=== PATIENT | female | born 1930 | race Caucasian/White ===

== ENCOUNTER 2016-12-05 17:39 | Emergency (ER) | payer MEDICARE ==
[2016-12-05] MEDS ORDERED: MORPHINE SULFATE 4 MG INJ IV ONE ×2 (17:54→20:07)
[2016-12-05] MEDS ORDERED: Sodium Chloride 0.9% 1000 ML 1,000 ML ONE (17:59)
[2016-12-05] MEDS ORDERED: MORPHINE SULFATE 4 MG INJ ONE ×2 (17:59→20:18)
[2016-12-05] MEDS ORDERED: Sodium Chloride 0.9% 1000 ML 1,000 ML IV SCH (18:00)
--- NOTE | 2016-12-05 18:00 | ERPHSYRPT ---
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 Physician History: 86-year-old white female arrives with complaint of pain in the base of her neck and also in the upper thoracic region after falling at home. According to the patient she fell at home striking her neck, possibly on stairs. She states that she really doesn't know why she fell she thinks that she might loss of balance she denies any loss of consciousness. She has no chest pain no nausea or shortness of breath. She does have pain across her upper thoracic region radiating across her shoulders and pain in the base of her neck. Past medical history patient denies. Past surgical history patient states that she has had a hysterectomy she's not sure she had a gallbladder or appendix taken out. Timing/Duration: today (fell just prior to arrival) Severity: moderate Modifying Factors: Worsens With: eating, immobilization, medication, movement, rest, acetaminophen, ibuprofen Associated Symptoms: No nausea, No vomiting, No abdominal pain, No shortness of breath, No heartburn, No diaphoresis, No cough, No chills, No chest pain, No fever, No headaches, No loss of appetite, No malaise, No rash, No syncope, No seizure, No weakness Allergies/Adverse Reactions: No Known Drug Allergies Allergy (Verified 12/05/16 17:45) Home Medications: Aspirin 81 gm Chew [Baby Aspirin 81 mg Chew] 81 mg PO DAILY 12/05/16 [ History] Hx Tetanus, Diphtheria Vaccination/Date Given: Yes Immunizations Up to Date: Yes - Review of Systems Constitutional: No Fever, No Chills Eyes: No Symptoms Ears, Nose, & Throat: No Symptoms Respiratory: No Cough, No Dyspnea Cardiac: No Chest Pain, No Edema, No Syncope Abdominal/Gastrointestinal: No No Symptoms, No Abdominal Pain, No Nausea, No Vomiting, No Diarrhea, No Constipation, No Hematemesis, No Hematochezia, No Melena, No Dysphagia, No Appetite Changes Genitourinary Symptoms: No Dysuria Musculoskeletal: Other (pain posterior neck and upper thoracic region) Skin: No Rash Neurological: No Dizziness, No Focal Weakness, No Sensory Changes Psychological: No Symptoms Endocrine: No Symptoms All Other Systems: Reviewed and Negative - Past Medical History Pertinent Past Medical History: No - Past Surgical History Past Surgical History: Yes Female Surgical History: Hysterectomy - Social History Smoking Status: Never smoker Drug Use: none - Nursing Vital Signs Nursing Vital Signs: Initial Vital Signs Temperature 97.7 F 12/05/16 17:39 Pulse Rate 95 H 12/05/16 17:39 Respiratory Rate 18 12/05/16 17:39 Blood Pressure 180/90 12/05/16 17:39 O2 Sat by Pulse Oximetry 99 12/05/16 17:39 Pain Scale Pain Intensity 10 - Physical Exam General Appearance: mild distress, other (well-developed well-nourished white female C collar in place) Eye Exam: PERRL/EOMI, eyes nml inspection Ears, Nose, Throat Exam: normal ENT inspection, TMs normal, pharynx normal, moist mucous membranes Neck Exam: other (neck tender at the base posteriorly c-collar in place), No non -tender Respiratory Exam: normal breath sounds, lungs clear, No respiratory distress Cardiovascular Exam: regular rate/rhythm, normal heart sounds, normal peripheral pulses Gastrointestinal/Abdomen Exam: soft, normal bowel sounds, No tenderness, No mass 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), No normal inspection, No normal range of motion, No CVA tenderness, No vertebral tenderness Extremity Exam: normal inspection, normal range of motion, pelvis stable Neurologic Exam: alert, oriented x 3, cooperative, normal mood/affect, nml cerebellar function, nml station & gait, sensation nml, No motor deficits Skin Exam: normal color, warm, dry, No rash Lymphatic Exam: No adenopathy SpO2 Interpretation: normal (99%) SpO2: 99 Oxygen Delivery: Room Air - Course Nursing assessment & vital signs reviewed: Yes EKG Interpreted by Me: RATE (87 bpm), Sinus Rhythm, NORMAL AXIS, Other (EKG: Normal sinus rhythm, 87 bpm, normal axis, no acute ST or T wave changes noted) - Radiology Exams Chest X-ray Interpretation: Interpreted by me, Negative, No Pneumonia, No Pneumothorax , Other (chest x-ray: No acute disease process noted) - CT Exams Cervical Spine CT Interpretation: Discussed w/radiologist (CT C-spine: no comparisons, C7 superior endplate fracture with a 50% height loss and no spinal canal stenosis. 2 mm anterior lysthesis C5 on C6 osteopenia and degenerative disc disease) Thoracic Spine CT Interpretation: Discussed w/radiologist (CT thoracic spine: No comparisons, osteopenia and multilevel degenerative changes negative fracture.) Head CT Interpretation: Discussed w/radiologist (CT head: No comparisons. Small right parietal scalp hematoma no fracture or acute intracranial findings) Ordered Tests: Active Orders 24 hr Category Date Time Status Accucheck STAT Care 12/05/16 17:53 Active EKG-ER Only STAT Care 12/05/16 17:53 Active IV Insertion STAT Care 12/05/16 17:53 Active CERVICAL SPINE WO CONTRAST [CT] Stat Exams 12/05/16 17:53 Taken CHEST 1 VIEW (PORTABLE) Stat Exams 12/05/16 17:55 Taken HEAD WITHOUT CONTRAST [CT] Stat Exams 12/05/16 19:38 Taken THORACIC SPINE W/O CONTRAST [CT] Stat Exams 12/05/16 17:55 Taken CBC W DIFF Stat Lab 12/05/16 18:08 Completed CMP Stat Lab 12/05/16 18:08 Completed Manual Differential NC Stat Lab 12/05/16 18:08 Completed Medication Summary Generic Name Dose Route Start Last Admin Trade Name Freq PRN Reason Stop Dose Admin Sodium Chloride 1,000 mls @ 100 mls/hr 12/05/16 18:00 12/05/16 18:02 Sodium Chloride 0.9% 1000 Ml IV 01/04/17 17:59 100 mls/hr .Q10H JANAY Administration Discontinued Medications Generic Name Dose Route Start Last Admin Trade Name Freq PRN Reason Stop Dose Admin Morphine Sulfate 4 mg 12/05/16 17:54 12/05/16 18:01 Morphine Sulfate 4 Mg Inj IV 12/05/16 17:55 4 mg STAT ONE Administration Morphine Sulfate Confirm 12/05/16 17:59 Morphine Sulfate 4 Mg Inj Administered 12/05/16 18:00 Dose 4 mg .ROUTE .STK-MED ONE Morphine Sulfate 4 mg 12/05/16 20:07 Morphine Sulfate 4 Mg Inj IV 12/05/16 20:08 STAT ONE Morphine Sulfate Confirm 12/05/16 20:18 Morphine Sulfate 4 Mg Inj Administered 12/05/16 20:19 Dose 4 mg .ROUTE .STK-MED ONE Lab/Rad Data: Laboratory Result Diagrams 12/05/16 18:08 12/05/16 18:08 Laboratory Results 12/05/16 12/05/16 Range/Units 18:08 18:08 WBC 10.4 (4.0-10.5) K/mm3 RBC 3.91 L (4.1-5.4) M/mm3 Hgb 11.7 L (12.0-16.0) gm/dl Hct 36.5 (35-47) % MCV 93.4 (78-100) fl MCH 29.9 (26-32) pg MCHC 32.1 (32-36) g/dl RDW 12.6 (11.5-14.0) % Plt Count 315 (150-450) K/mm3 MPV 10.2 H (6-9.5) fl Segmented Neutrophils 32 L (36.0-66.0) % Band Neutrophils 3 H (0.0-2.0) % Lymphocytes (Manual) 55 H (24-44) % Monocytes (Manual) 2 (0.0-12.0) % Differential Comment NORMAL Atypical Lymphocytes 8 % Platelet Estimate NORMAL (NORMAL) Sodium 142 (136-145) mEq/L Potassium 3.7 (3.5-5.1) mEq/L Chloride 105 (98-107) mEq/L Carbon Dioxide 24.4 (21-32) mEq/L Anion Gap 16.7 H (5-15) MEQ/L BUN 25 H (9-20) mg/dL Creatinine 1.30 (0.55-1.30) mg/dl Estimated GFR 41 ML/MIN Glucose 121 H (70-110) MG/DL Calcium 10.4 H (8.5-10.1) mg/dL Total Bilirubin 0.70 (0.2-1.0) mg/dL AST 27 (15-37) U/L ALT 14 (12-78) U/L Alkaline Phosphatase 99 (46-116) U/L Serum Total Protein 7.9 (6.4-8.2) gm/dL Albumin 4.2 (3.4-5.0) g/dL - Progress Progress: improved Progress Note: 12/05/16 19:22 Patient with a C7 superior endplate fracture with a 50% height loss and no spinal canal stenosis 2 mm anterolisthesis C5 on C6. Osteopenia and degenerative disc disease CT T-spine no comparisons osteopenia and multilevel degenerative changes. Negative fracture. Patient has been running a blood pressure of 200/100 she states she has no meds she has no chest pain Pain is limited to patient's neck 12/05/16 19:39 I discussed the patient's case with Dr. Zhang at [facility],, He has received requested that a CT of the head be obtained on this patient. And he has accepted the patient to [facility] after this is done. Will obtain CT of the head plan on transfer patient has been given morphine for pain. Patient's EKG CBC CMP are essentially normal 12/05/16 19:44 Patient's blood pressure has run 200/100 she has been stable there is felt that this is a likely secondary to her pain she is being given morphine for pain, She has no neurologic sequela associated with her high blood pressure, - Departure Time of Disposition: 20:22 Departure Disposition: Transfer ([facility] [address] Mendoza) Clinical Impression: Accidental fall Qualifiers: Encounter type: initial encounter Qualified Code(s): W19.XXXA - Unspecified fall, initial encounter Cervical compression fracture Qualifiers: Encounter type: initial encounter Qualified Code(s): S12.9XXA - Fracture of neck, unspecified, initial encounter Hypertension Qualifiers: Hypertension type: unspecified Qualified Code(s): I10 - Essential (primary) hypertension Condition: Fair Critical Care Time: No Referrals: JOSE ZENG MD [Primary Care Provider] -
[2016-12-05 18:11] LABS: Mean Cell Volume 93.4 fl (78-100); Mean Corpuscular Hemoglobin 29.9 pg (26-32); Mean Platelet Volume 10.2 fl (6-9.5); Platelet Count 315 K/mm3 (150-450); Red Blood Count 3.91 M/mm3 (4.1-5.4); Red Cell Distribution Width 12.6 % (11.5-14.0); White Blood Count 10.4 K/mm3 (4.0-10.5)
[2016-12-05 18:37] LABS: ALBUMIN 4.2 g/dL (3.4-5.0); ANION GAP 16.7 MEQ/L (5-15); BILIRUBIN,TOTAL 0.7 mg/dL (0.2-1.0); Carbon Dioxide 24.4 mEq/L (21-32); Potassium 3.7 mEq/L (3.5-5.1); Total Protein 7.9 gm/dL (6.4-8.2)
[2016-12-05 18:45] LABS: ATYPICAL LYMPHS 8 %; BAND 3 % (0.0-2.0); Platelet Estimate NORMAL (NORMAL); Total Cells Counted 100
[2016-12-05 21:13] VITALS: BP 185/81; PULSE 80; O2SAT 97
--- NOTE | 2016-12-06 08:34 | XRAY ---
Indication: Pain following fall. Multiple contiguous axial images obtained through the head without contrast. Comparison: None Ventriculosulcal pattern appears symmetric with age-related global atrophy and minimal periventricular degenerative micro-ischemia. No acute intracranial hemorrhage, abnormal extra-axial fluid collection, or mass effect. Fourth ventricle is midline without hydrocephalus. Bony calvarium intact. Small high right parietal scalp hematoma. Visualized paranasal sinuses and mastoid air cells are clear. Impression: Nonacute senile brain with small right parietal scalp hematoma. CT DI 46.29
--- NOTE | 2016-12-06 08:39 | XRAY ---
Indication: Pain following fall. Multiple contiguous axial images obtained through the cervical spine. Sagittal and coronal reformatted images obtained. Comparison: None Osseous structures demineralized. There is fracture involving the superior endplate of C7 with approximately 50% height loss. No spinal canal or foraminal stenosis. Elsewhere mild C5-C6 degenerative endplate spurring, multilevel bilateral degenerative facet arthropathy, and odontoid process subcortical cyst. Sagittal and coronal reformatted images demonstrates 2 mm C5 anterolisthesis on C6. No other subluxation or jumped facet. Normal-appearing craniocervical junction. Visualized noncontrasted soft tissues demonstrates biapical pleural thickening. CT head and CT thoracic spine reported separately. Impression: 1. C7 superior endplate fracture as detailed. 2. Osteopenia, multilevel degenerative changes, and minimal grade [address] DI 77.43
--- NOTE | 2016-12-06 08:43 | XRAY ---
Indication: Pain following fall. Multiple contiguous axial images obtained through the thoracic spine. Sagittal and coronal reformatted images obtained. Comparison: None Osseous structures demineralized. No acute fracture, suspicious bony lesions, or spinal canal stenosis. Mild multilevel degenerative endplate spurring. Sagittal and coronal reformatted images demonstrates normal alignment. No acute compression fracture or subluxation. Visualized noncontrasted soft tissues demonstrates tiny right lung calcified granuloma and mild aortic calcifications. CT cervical spine reported separately. Impression: 1. Negative acute fracture. 2. Osteopenia. CT DI 71.54
--- NOTE | 2016-12-06 09:01 | XRAY ---
Indication: Fall. Comparison: None Portable chest hyperinflated and clear with incidental left base calcified granuloma. Heart is within normal limits for AP portable technique. Vascularity normal. Bony thorax intact with mild osteopenia, degenerative changes, and old left clavicle fracture. Impression: No acute chest with chronic features.
== END 2016-12-05 21:10 | disposition short-term general hospital (02) ==
LOC: ED 17:39
DX: S12.9XXA Fracture of neck, unspecified, initial encounter (principal); I10 Essential (primary) hypertension; W18.39XA Other fall on same level, initial encounter; Y92.018 Other place in single-family (private) house as the place of occurrence of the external cause; M54.6 Pain in thoracic spine; M54.2 Cervicalgia
CPT/HCPCS: 36000; 36415; 70450; 71010; 72125; 72128; 80053; 82962; 85025; 93005; 96360; 96361; 96374; 96375; 99285; J2270

== ENCOUNTER 2019-07-13 13:56 | Inpatient (IN) | payer MEDICARE ==
--- NOTE | 2019-07-13 14:00 | ERPHSYRPT ---
- History of Present Illness Time Seen by Provider: 07/13/19 13:59 Source: patient Exam Limitations: no limitations Physician History: Is an 88-year-old white female patient of Dr. Zeng who has a history of elevated cholesterol. Patient is not taking her cholesterol-lowering medication. She only takes a baby aspirin a day. For the last 2 to 3 days the patient has been experiencing increasing shortness of breath. She denies pain of any kind. Patient was seen in the outpatient clinic where her oxygen saturations room air was 92%. Patient denies nausea vomiting and diarrhea. Patient denies chest pain. Patient denies fever. Patient denies cough. Patient has not been exposed to anybody with any flulike illnesses or diagnoses. Timing/Duration: day(s) (A few), worse Activities at Onset: none Severity of Dyspnea-Max: moderate Severity of Dyspnea-Current: mild Possible Cause: no prior episodes Modifying Factors: Improves With: exertion Associated Symptoms: No cough, No chest pain/discomfort, No fever, No wheezing, No hemoptysis, No painful breathing, No productive cough Allergies/Adverse Reactions: No Known Drug Allergies Allergy (Verified 12/05/16 17:45) Home Medications: Aspirin 81 gm Chew [Baby Aspirin 81 mg Chew] 81 mg PO DAILY 12/05/16 [ History] Hx Tetanus, Diphtheria Vaccination/Date Given: Yes Travel Risk - International Travel Have you traveled outside of the country in past 3 weeks: No Have you or anyone close to you been diagnosed with or: No Do your reside in a community with a known COVID-19 case?: Yes If Yes where:: [facility] - Coronavirus Screening Has patient experienced Coronavirus symptoms: Yes Symptoms experienced: respiratory symptoms (i.e.Cought,shortness of breath) - Review of Systems Constitutional: No Symptoms Eyes: No Symptoms Ears, Nose, & Throat: No Symptoms Respiratory: Dyspnea Cardiac: No Symptoms, Palpitations, No Chest Pain Abdominal/Gastrointestinal: No Symptoms Genitourinary Symptoms: No Symptoms Musculoskeletal: No Symptoms Skin: No Symptoms Neurological: No Symptoms Psychological: No Symptoms Endocrine: No Symptoms Hematologic/Lymphatic: No Symptoms Immunological/Allergic: No Symptoms All Other Systems: Reviewed and Negative - Past Medical History Pertinent Past Medical History: No Neurological History: No Pertinent History ENT History: No Pertinent History Cardiac History: No Pertinent History Respiratory History: No Pertinent History Endocrine Medical History: No Pertinent History Musculoskeletal History: No Pertinent History GI Medical History: No Pertinent History History: No Pertinent History Psycho-Social History: No Pertinent History Female Reproductive Disorders: No Pertinent History - Past Surgical History Past Surgical History: Yes Neuro Surgical History: No Pertinent History Cardiac: No Pertinent History Respiratory: No Pertinent History Gastrointestinal: No Pertinent History Genitourinary: No Pertinent History Musculoskeletal: No Pertinent History Female Surgical History: Hysterectomy - Social History Smoking Status: Never smoker Drug Use: none - Nursing Vital Signs Nursing Vital Signs: Initial Vital Signs Temperature 97.7 F 07/13/19 13:57 Pulse Rate 132 H 07/13/19 13:57 Respiratory Rate 28 H 07/13/19 13:57 Blood Pressure 181/127 07/13/19 13:57 O2 Sat by Pulse Oximetry 97 07/13/19 13:57 Pain Scale Pain Intensity 0 - Physical Exam General Appearance: no apparent distress, alert Eye Exam: PERRL/EOMI, eyes nml inspection Ears, Nose, Throat Exam: hearing grossly normal, normal ENT inspection, normal pharynx Neck Exam: normal inspection, non-tender, supple, full range of motion Respiratory Exam: normal breath sounds, lungs clear, airway intact, No chest tenderness, No respiratory distress Cardiovascular/Chest Exam: irregular Abdominal/Gastrointestinal Exam: soft, normal bowel sounds, No tenderness Rectal Exam: not done Extremity Exam: non-tender, normal range of motion, normal inspection Neurologic Exam: alert, oriented x 3, cooperative, 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 tested, normal mood/affect, nml cerebellar function, nml station & gait Skin Exam: normal color, warm, dry Lymphatic Exam: No adenopathy SpO2 Interpretation: normal O2 Delivery: Room Air - Course Nursing assessment & vital signs reviewed: Yes EKG Interpreted by Me: RATE (160), A-fib Ordered Tests: Active Orders 24 hr Category Date Time Status Obstetrics Nurse STAT Care 07/13/19 14:21 Active EKG-ER Only STAT Care 07/13/19 14:20 Active IV Insertion STAT Care 07/13/19 14:20 Active Pulse Oximetry (ED) STAT Care 07/13/19 14:20 Active CHEST 1 VIEW (PORTABLE) Stat Exams 07/13/19 14:22 Completed CHEST WITH CONTRAST [CT] Stat Exams 07/13/19 17:11 Taken BMP Stat Lab 07/13/19 16:40 Completed CBC W DIFF Stat Lab 07/13/19 14:45 Completed CMP Stat Lab 07/13/19 14:20 Completed D-DIMER QUANTITATIVE Stat Lab 07/13/19 14:20 Completed Ferritin Stat Lab 07/13/19 15:00 Completed Lactic Acid Stat Lab 07/13/19 14:20 Completed Lactic Acid Stat Lab 07/13/19 16:35 Completed MAGNESIUM Stat Lab 07/13/19 14:20 Completed NT PRO BNP Stat Lab 07/13/19 14:20 Completed PROTIME WITH INR Stat Lab 07/13/19 14:20 Completed TROPONIN Q3H Lab 07/13/19 14:30 Completed TROPONIN Q3H Lab 07/13/19 16:40 Completed TROPONIN Q3H Lab 07/13/19 20:30 Ordered TROPONIN Q3H Lab 07/13/19 23:30 Ordered TROPONIN Q3H Lab 07/14/19 02:30 Ordered Medication Summary Generic Name Dose Route Start Last Admin Trade Name Freq PRN Reason Stop Dose Admin Diltiazem HCl 100 mls @ 5 mls/hr 07/13/19 15:09 07/13/19 15:18 Cardizem Drip 100 Mg/100 Ml D5w IV 08/12/19 15:08 5 mg/hr .Q20H PRN 5 mls/hr HEART RATE/ A-FIB Administration Protocol 5 MG/HR Discontinued Medications Generic Name Dose Route Start Last Admin Trade Name Freq PRN Reason Stop Dose Admin Diltiazem HCl 15 mg 07/13/19 14:18 07/13/19 14:29 Diltiazem Hcl 25 Mg/5 Ml Vial IV 07/13/19 14:19 Not Given STAT ONE Diltiazem HCl Confirm 07/13/19 14:21 Cardizem Iv 50 Mg/10 Ml Administered 07/13/19 14:22 Dose 50 mg IV .STK-MED ONE Diltiazem HCl 15 mg 07/13/19 14:20 07/13/19 14:23 Cardizem Iv 50 Mg/10 Ml IV 07/13/19 14:21 15 mg STAT ONE Administration Sodium Chloride 500 mls @ 500 mls/hr 07/13/19 15:09 07/13/19 17:19 Sodium Chloride 0.9% 500 Ml IV 07/13/19 16:08 Infused .Q1H ONE Infusion Sodium Chloride Confirm 07/13/19 15:11 Sodium Chloride 0.9% 500 Ml Administered 07/13/19 15:12 Dose 500 mls @ ud IV .STK-MED ONE Lab/Rad Data: Laboratory Result Diagrams 07/13/19 14:45 07/13/19 16:40 Laboratory Results 07/13/19 07/13/19 07/13/19 Range/Units 16:40 16:40 16:35 WBC (4.0-10.5) K/mm3 RBC (4.1-5.4) M/mm3 Hgb (12.0-16.0) gm/dl Hct (35-47) % MCV (78-100) fl MCH (26-32) pg MCHC (32-36) g/dl RDW (11.5-14.0) % Plt Count (150-450) K/mm3 MPV (7.5-11.0) fl Gran % (36.0-66.0) % Eos # (Auto) (0-0.5) Absolute Lymphs (auto) (1.0-4.6) Absolute Monos (auto) (0.0-1.3) Lymphocytes % (24.0-44.0) % Monocytes % (0.0-12.0) % Eosinophils % (0.00-5.0) % Basophils % (0.0-0.4) % Absolute Granulocytes (1.4-6.9) Basophils # (0-0.4) PT (9.95-12.35) SECONDS INR (0.8-3.0) D-Dimer (215-500) ng/mL Sodium 144 (137-145) mmol/L Potassium 4.4 (3.5-5.1) mmol/L Chloride 113 H (98-107) mmol/L Carbon Dioxide 22 (22-30) mmol/L Anion Gap 13.1 (5-15) MEQ/L BUN 27 H (7-17) mg/dL Creatinine 1.08 H (0.52-1.04) mg/dL Estimated GFR 51.0 ML/MIN Glucose 109 H (74-106) mg/dL Lactic Acid 1.3 (0.4-2.0) Calcium 10.1 (8.4-10.2) mg/dL Magnesium (1.6-2.3) mg/dL Ferritin (11.1-264) ng/mL Total Bilirubin (0.2-1.3) mg/dL AST (14-36) U/L ALT (0-35) U/L Alkaline Phosphatase (38-126) U/L Troponin I < 0.012 (0.000-0.034) ng/mL NT-Pro-B Natriuret Pep (0-1800) pg/mL Serum Total Protein (6.3-8.2) g/dL Albumin (3.5-5.0) g/dL 07/13/19 07/13/19 07/13/19 Range/Units 15:00 14:45 14:30 WBC 8.2 (4.0-10.5) K/mm3 RBC 3.67 L (4.1-5.4) M/mm3 Hgb 11.1 L (12.0-16.0) gm/dl Hct 34.7 L (35-47) % MCV 94.6 (78-100) fl MCH 30.2 (26-32) pg MCHC 32.0 (32-36) g/dl RDW 13.2 (11.5-14.0) % Plt Count 266 (150-450) K/mm3 MPV 9.8 (7.5-11.0) fl Gran % 83.6 H (36.0-66.0) % Eos # (Auto) 0.02 (0-0.5) Absolute Lymphs (auto) 0.81 L (1.0-4.6) Absolute Monos (auto) 0.51 (0.0-1.3) Lymphocytes % 9.8 L (24.0-44.0) % Monocytes % 6.2 (0.0-12.0) % Eosinophils % 0.2 (0.00-5.0) % Basophils % 0.2 (0.0-0.4) % Absolute Granulocytes 6.87 (1.4-6.9) Basophils # 0.02 (0-0.4) PT (9.95-12.35) SECONDS INR (0.8-3.0) D-Dimer (215-500) ng/mL Sodium (137-145) mmol/L Potassium (3.5-5.1) mmol/L Chloride (98-107) mmol/L Carbon Dioxide (22-30) mmol/L Anion Gap (5-15) MEQ/L BUN (7-17) mg/dL Creatinine (0.52-1.04) mg/dL Estimated GFR ML/MIN Glucose (74-106) mg/dL Lactic Acid (0.4-2.0) Calcium (8.4-10.2) mg/dL Magnesium (1.6-2.3) mg/dL Ferritin 28.1 (11.1-264) ng/mL Total Bilirubin (0.2-1.3) mg/dL AST (14-36) U/L ALT (0-35) U/L Alkaline Phosphatase (38-126) U/L Troponin I < 0.012 (0.000-0.034) ng/mL NT-Pro-B Natriuret Pep (0-1800) pg/mL Serum Total Protein (6.3-8.2) g/dL Albumin (3.5-5.0) g/dL 07/13/19 07/13/19 07/13/19 Range/Units 14:20 14:20 14:20 WBC (4.0-10.5) K/mm3 RBC (4.1-5.4) M/mm3 Hgb (12.0-16.0) gm/dl Hct (35-47) % MCV (78-100) fl MCH (26-32) pg MCHC (32-36) g/dl RDW (11.5-14.0) % Plt Count (150-450) K/mm3 MPV (7.5-11.0) fl Gran % (36.0-66.0) % Eos # (Auto) (0-0.5) Absolute Lymphs (auto) (1.0-4.6) Absolute Monos (auto) (0.0-1.3) Lymphocytes % (24.0-44.0) % Monocytes % (0.0-12.0) % Eosinophils % (0.00-5.0) % Basophils % (0.0-0.4) % Absolute Granulocytes (1.4-6.9) Basophils # (0-0.4) PT 12.3 (9.95-12.35) SECONDS INR 1.09 (0.8-3.0) D-Dimer 3733 H* (215-500) ng/mL Sodium 146 H (137-145) mmol/L Potassium 4.2 (3.5-5.1) mmol/L Chloride 112 H (98-107) mmol/L Carbon Dioxide 23 (22-30) mmol/L Anion Gap 16.4 H (5-15) MEQ/L BUN 28 H (7-17) mg/dL Creatinine 1.19 H (0.52-1.04) mg/dL Estimated GFR 45.6 ML/MIN Glucose 146 H (74-106) mg/dL Lactic Acid 2.2 H (0.4-2.0) Calcium 10.7 H (8.4-10.2) mg/dL Magnesium 2.3 (1.6-2.3) mg/dL Ferritin (11.1-264) ng/mL Total Bilirubin 0.80 (0.2-1.3) mg/dL AST 26 (14-36) U/L ALT 23 (0-35) U/L Alkaline Phosphatase 114 (38-126) U/L Troponin I (0.000-0.034) ng/mL NT-Pro-B Natriuret Pep 4720 H (0-1800) pg/mL Serum Total Protein 7.7 (6.3-8.2) g/dL Albumin 4.3 (3.5-5.0) g/dL - Progress Progress: improved, re-examined Air Movement: good Progress Note: 07/13/19 18:43 Clinically, the patient states she is feeling better with oxygen placed nasal cannulae. CAT scan of the chest with contrast shows small filling defects within the right upper and lower segmental pulmonary arteries compatible with pulmonary emboli. There is moderate right and small left pleural effusions with adjacent consolidation of lower lobes. Scattered bilateral peripheral groundglass and nodular opacities with interlobar septal thickening are also present. There are multiple enlarged mediastinal lymph nodes sent Medical decision making: This patient has several medical issues occurring simultaneously. Patient has atrial fibrillation with RVR, congestive heart failure, bilateral pulmonary emboli and bilateral pleural effusions with associated pulmonary edema. I spoke with Dr. Jones who is managing the COVID- 19 unit here in the hospital. I reviewed the patient history, condition, x-ray findings, EKG, laboratory results. I also spoke with the patient regarding her DNR status. Patient is adamantly opposed to undergoing endotracheal intubation or coding process. Patient is a full DNR. Blood Culture(s) Obtained: No Antibiotics given: No - Departure Departure Disposition: In-patient Admission Clinical Impression: Pulmonary edema, Pleural effusion, Congestive heart failure, Pulmonary emboli, Atrial fibrillation with RVR Condition: Fair Critical Care Time: Yes Critical Care Time(excluding separately billable procedures): Critical 75-104 mins Referrals: JOSE ZENG MD [Primary Care Provider] - Instructions: Heart Failure
[2019-07-13] MEDS ORDERED: Cardizem IV 50 MG/10 ML IV ONE ×2 (14:20→14:21)
[2019-07-13] MEDS: DILTIAZEM HCL 25 MG/5 ML VIAL IV ONE ×2 (14:22→14:29)
--- NOTE | 2019-07-13 14:45 | XRAY ---
Indication: Short of breath. Comparison: December 05, 2016. Portable chest demonstrates new cardiomegaly, interstitial edema, and mild/moderate bibasilar effusions right greater than left favoring cardiac decompensation/CHF. Bony thorax intact again with osteopenia, degenerative changes, and old left clavicle fracture.
[2019-07-13 14:51] LABS: Absolute Neutrophil Ct (ANC) 6.87 (1.4-6.9); BASOPHIL % 0.2 % (0.0-0.4); Basophil (Absolute #) 0.02 (0-0.4); Eosinophil % 0.2 % (0.00-5.0); Eosinophil (Absolute #) 0.02 (0-0.5); Hematocrit 34.7 % (35-47); Hemoglobin 11.1 gm/dl (12.0-16.0); Lymphocyte (Absolute #) 0.81 (1.0-4.6); Lymphocytes % 9.8 % (24.0-44.0); Mean Cell Volume 94.6 fl (78-100); Mean Corpuscular Hemoglobin 30.2 pg (26-32); Mean Platelet Volume 9.8 fl (7.5-11.0); Monocyte (Absolute #) 0.51 (0.0-1.3); Monocytes % 6.2 % (0.0-12.0); Neutrophil % 83.6 % (36.0-66.0); Platelet Count 266 K/mm3 (150-450); Red Blood Count 3.67 M/mm3 (4.1-5.4); Red Cell Distribution Width 13.2 % (11.5-14.0); White Blood Count 8.2 K/mm3 (4.0-10.5)
[2019-07-13 14:51] LABS: INR 1.09 (0.8-3.0); PROTIME 12.3 SECONDS (9.95-12.35)
[2019-07-13 15:00] LABS: ALBUMIN 4.3 g/dL (3.5-5.0); ANION GAP 16.4 MEQ/L (5-15); BILIRUBIN,TOTAL 0.8 mg/dL (0.2-1.3); Calcium 10.7 mg/dL (8.4-10.2); Creatinine 1 1.19 mg/dL (0.52-1.04); MAGNESIUM 2.3 mg/dL (1.6-2.3); Potassium 4.2 mmol/L (3.5-5.1); Total Protein 7.7 g/dL (6.3-8.2)
[2019-07-13] MEDS ORDERED: Sodium Chloride 0.9% 500 ML 500 ML IV ONE ×2 (15:09→15:11)
[2019-07-13] MEDS: CARDIZEM DRIP 100 MG/100 ML D5W 100 ML IV PRN (15:18)
[2019-07-13 17:06] LABS: ANION GAP 13.1 MEQ/L (5-15); Calcium 10.1 mg/dL (8.4-10.2); Creatinine 1 1.08 mg/dL (0.52-1.04); Potassium 4.4 mmol/L (3.5-5.1)
[2019-07-13] MEDS ORDERED: ENOXAPARIN SODIUM SQ ONE ×2 (18:53→19:18)
[2019-07-13] MEDS ORDERED: Lasix 40 MG/4 ML IV ONE (18:54)
[2019-07-13] MEDS ORDERED: Lasix 40 MG/4 ML ONE (19:18)
[2019-07-13] MEDS ORDERED: CARDIZEM DRIP 100 MG/100 ML D5W 100 ML IV PRN (20:16)
[2019-07-13] MEDS ORDERED: Lasix 40 MG/4 ML IV SCH (20:16)
[2019-07-13] MEDS ORDERED: Zofran 4 MG/2 ML VIAL IV PRN (20:16)
--- NOTE | 2019-07-13 22:27 | XRAY ---
Indication: Short of breath. Elevated d-dimer. Multiple contiguous axial images obtained through the chest using 80 cc of Isovue 370 contrast and PE protocol. Comparison: None There is satisfactory opacification of the pulmonary arteries. Mild respiration artifact limits evaluation of the more distal lobar and segmental branches. Multiple nonoccluding pulmonary emboli seen in the right upper, right middle, and right lower lobes. Tiny saddle embolus seen in the left upper lobe. Heart is enlarged. Aorta is mildly arteriosclerotic without aneurysm/dissection. Small mediastinal calcified nodes. No pathologic mediastinal/hilar lymphadenopathy. Lungs demonstrates interstitial edema and moderate bilateral pleural effusions right greater than left with bibasilar compressive atelectasis. Bony thorax intact with osteopenia and minimal degenerative changes throughout the spine. Limited upper abdomen demonstrates mild fatty liver and hepatic/splenic calcified granulomas. Impression: 1. Mild respiration artifact. 2. Nonoccluding pulmonary emboli in the right upper/middle/lower lobes and tiny saddle embolus left upper lobe. 3. Cardiomegaly, interstitial edema, and bilateral pleural effusions favoring cardiac decompensation/CHF. 4. Mild fatty liver and evidence for old granulomatous disease. Comment: Preliminary interpretation was made by C. No critical discrepancy.
[2019-07-14] MEDS: ENOXAPARIN SODIUM SQ SCH ×3 (03:11→21:28)
[2019-07-14 04:00] LABS: Absolute Neutrophil Ct (ANC) 5.65 (1.4-6.9); BASOPHIL % 0.4 % (0.0-0.4); Basophil (Absolute #) 0.03 (0-0.4); Eosinophil % 0.3 % (0.00-5.0); Eosinophil (Absolute #) 0.02 (0-0.5); Hematocrit 34.3 % (35-47); Lymphocyte (Absolute #) 1.03 (1.0-4.6); Mean Cell Volume 94.5 fl (78-100); Mean Corpuscular Hemoglobin 30.3 pg (26-32); Mean Corpuscular Hgb Concent. 32.1 g/dl (32-36); Mean Platelet Volume 10.1 fl (7.5-11.0); Monocyte (Absolute #) 0.62 (0.0-1.3); Monocytes % 8.4 % (0.0-12.0); Neutrophil % 76.9 % (36.0-66.0); Platelet Count 282 K/mm3 (150-450); Red Blood Count 3.63 M/mm3 (4.1-5.4); Red Cell Distribution Width 13.3 % (11.5-14.0); White Blood Count 7.4 K/mm3 (4.0-10.5)
[2019-07-14] MEDS ORDERED: CARDIZEM DRIP 100 MG/100 ML D5W 100 ML IV ONE (04:01)
[2019-07-14 04:05] LABS: ALBUMIN 4.1 g/dL (3.5-5.0); ANION GAP 14.8 MEQ/L (5-15); BILIRUBIN,TOTAL 0.9 mg/dL (0.2-1.3); Calcium 10.5 mg/dL (8.4-10.2); Creatinine 1 1.15 mg/dL (0.52-1.04); Potassium 3.8 mmol/L (3.5-5.1); Total Protein 7.5 g/dL (6.3-8.2)
[2019-07-14] MEDS: CARDIZEM DRIP 100 MG/100 ML D5W 100 ML IV PRN ×2 (04:16→11:13)
[2019-07-14] MEDS: Lasix 40 MG/4 ML IV SCH ×2 (09:37→21:28)
--- NOTE | 2019-07-14 12:01 | PCM.HP ---
History of Present Illness - Chief Complaint Chief Complaint: pe, afib with rvr History of Present Illness: is a 88 year old female who presented to the ER yesterday with a 2-3 day history of increasing shortness of breath, she denies chest pain, no significant cough or fever. she has a history of hyperlipidemia but does not take any medications for it, only takes an 81mg aspirin daily. - Review of Systems Constitutional: No Fever, No Chills Respiratory: Short Of Breath, No Cough Cardiac: No Chest Pain, No Edema, No Syncope Abdominal/Gastrointestinal: No Abdominal Pain, No Nausea, No Vomiting, No Diarrhea Genitourinary Symptoms: No Dysuria Skin: No Rash All Other Systems: Reviewed and Negative Medications & Allergies Home Medications: Home Medication List Aspirin 81 gm Chew [Baby Aspirin 81 mg Chew] 81 mg PO DAILY 12/05/16 [ History Confirmed 07/13/19] Allergies/Adverse Reactions: Allergies Allergy/AdvReac Type Severity Reaction Status Date / Time No Known Drug Allergies Allergy Verified 07/13/19 23:01 - Past Medical History Past Medical History: No Neurological History: No Pertinent History ENT History: No Pertinent History Cardiac History: No Pertinent History Respiratory History: No Pertinent History Endocrine Medical History: No Pertinent History Musculoskelatal History: No Pertinent History GI Medical History: No Pertinent History History: No Pertinent History Pyscho-Social History: No Pertinent History Reproductive Disorders: No Pertinent History - Female History Are you now?: No - Past Surgical History Past Surgical History: Yes Neuro Surgical History: No Pertinent History Cardiac History: No Pertinent History Respiratory Surgery: No Pertinent History GI Surgical History: No Pertinent History Genitourinary Surgical Hx: No Pertinent History Musculskeletal Surgical Hx: No Pertinent History Female Surgical History: Hysterectomy Other Surgical History: 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, back surgery, tear duct surgery, - Social History Smoking Status: Never smoker Exposure to second hand smoke: No Alcohol: None Drug Use: none - Physical Exam Vital Signs: Vital Signs - 24 hr Temp Pulse Resp BP BP Pulse Ox 07/14/19 11:51 128 H 18 07/14/19 11:33 132 H 18 121/75 07/14/19 10:36 137 H 18 137/84 94 L 07/14/19 10:00 137 H 18 140/83 94 L 07/14/19 08:39 127 H 140/83 07/14/19 08:19 128 H 18 140/53 94 L 07/14/19 07:51 95 07/14/19 07:26 127 H 20 133/86 94 L 07/14/19 07:20 130 H 07/14/19 06:32 119 H 20 142/76 07/14/19 06:00 97.1 F 112 H 18 122/76 07/14/19 05:04 114 H 14 131/76 07/14/19 05:00 97.8 F 120 H 24 131/76 94 L 07/14/19 03:43 104 H 18 124/72 93 L 07/14/19 03:00 110 H 21 136/75 90 L 07/14/19 02:00 93 H 14 103/52 90 L 07/14/19 01:00 103 H 17 103/56 90 L 07/14/19 00:45 82 16 07/14/19 00:12 125/63 07/14/19 00:00 115 H 18 90/52 94 L 07/13/19 23:44 114 H 07/13/19 23:37 21 07/13/19 23:00 97.6 F 88 21 91/53 90 L 07/13/19 22:04 97.7 F 119 H 18 145/100 07/13/19 22:00 97.9 F 111 H 19 115/60 94 L 07/13/19 21:49 119 H 07/13/19 21:17 135 H 25 H 93 L 07/13/19 19:29 113 H 21 145/100 97 07/13/19 18:01 116 H 20 159/97 98 07/13/19 16:00 125 H 16 118/97 94 L 07/13/19 15:26 123 H 145/84 91 L 07/13/19 14:24 98 07/13/19 14:13 28 H 95 07/13/19 13:57 97.7 F 132 H 28 H 181/127 97 Oxygen-Last 24 hours Oxygen Flowrate (L/min)-RT 5 Oxygen Flowrate (L/min)-RT 4 Oxygen Flowrate (L/min)-RT 4 General Appearance: no apparent distress Neurologic Exam: alert, oriented x 3, cooperative Respiratory Exam: crackles/rales Cardiovascular Exam: tachycardia, irregular Gastrointestinal/Abdomen Exam: soft, normal bowel sounds, No tenderness, No mass Extremity Exam: normal inspection, normal range of motion, pelvis stable Skin Exam: normal color, warm, dry, No rash Results - Labs Lab/Micro Results: Lab Results-Last 24 Hours 07/13/19 07/13/19 07/13/19 Range/Units 14:20 14:20 14:20 WBC (4.0-10.5) K/mm3 RBC (4.1-5.4) M/mm3 Hgb (12.0-16.0) gm/dl Hct (35-47) % MCV (78-100) fl MCH (26-32) pg MCHC (32-36) g/dl RDW (11.5-14.0) % Plt Count (150-450) K/mm3 MPV (7.5-11.0) fl Gran % (36.0-66.0) % Eos # (Auto) (0-0.5) Absolute Lymphs (auto) (1.0-4.6) Absolute Monos (auto) (0.0-1.3) Lymphocytes % (24.0-44.0) % Monocytes % (0.0-12.0) % Eosinophils % (0.00-5.0) % Basophils % (0.0-0.4) % Absolute Granulocytes (1.4-6.9) Basophils # (0-0.4) PT 12.3 (9.95-12.35) SECONDS INR 1.09 (0.8-3.0) D-Dimer 3733 H* (215-500) ng/mL Sodium 146 H (137-145) mmol/L Potassium 4.2 (3.5-5.1) mmol/L Chloride 112 H (98-107) mmol/L Carbon Dioxide 23 (22-30) mmol/L Anion Gap 16.4 H (5-15) MEQ/L BUN 28 H (7-17) mg/dL Creatinine 1.19 H (0.52-1.04) mg/dL Estimated GFR 45.6 ML/MIN Glucose 146 H (74-106) mg/dL Lactic Acid 2.2 H (0.4-2.0) Calcium 10.7 H (8.4-10.2) mg/dL Magnesium 2.3 (1.6-2.3) mg/dL Ferritin (11.1-264) ng/mL Total Bilirubin 0.80 (0.2-1.3) mg/dL AST 26 (14-36) U/L ALT 23 (0-35) U/L Alkaline Phosphatase 114 (38-126) U/L Troponin I (0.000-0.034) ng/mL NT-Pro-B Natriuret Pep 4720 H (0-1800) pg/mL Serum Total Protein 7.7 (6.3-8.2) g/dL Albumin 4.3 (3.5-5.0) g/dL 07/13/19 07/13/19 07/13/19 Range/Units 14:30 14:45 15:00 WBC 8.2 (4.0-10.5) K/mm3 RBC 3.67 L (4.1-5.4) M/mm3 Hgb 11.1 L (12.0-16.0) gm/dl Hct 34.7 L (35-47) % MCV 94.6 (78-100) fl MCH 30.2 (26-32) pg MCHC 32.0 (32-36) g/dl RDW 13.2 (11.5-14.0) % Plt Count 266 (150-450) K/mm3 MPV 9.8 (7.5-11.0) fl Gran % 83.6 H (36.0-66.0) % Eos # (Auto) 0.02 (0-0.5) Absolute Lymphs (auto) 0.81 L (1.0-4.6) Absolute Monos (auto) 0.51 (0.0-1.3) Lymphocytes % 9.8 L (24.0-44.0) % Monocytes % 6.2 (0.0-12.0) % Eosinophils % 0.2 (0.00-5.0) % Basophils % 0.2 (0.0-0.4) % Absolute Granulocytes 6.87 (1.4-6.9) Basophils # 0.02 (0-0.4) PT (9.95-12.35) SECONDS INR (0.8-3.0) D-Dimer (215-500) ng/mL Sodium (137-145) mmol/L Potassium (3.5-5.1) mmol/L Chloride (98-107) mmol/L Carbon Dioxide (22-30) mmol/L Anion Gap (5-15) MEQ/L BUN (7-17) mg/dL Creatinine (0.52-1.04) mg/dL Estimated GFR ML/MIN Glucose (74-106) mg/dL Lactic Acid (0.4-2.0) Calcium (8.4-10.2) mg/dL Magnesium (1.6-2.3) mg/dL Ferritin 28.1 (11.1-264) ng/mL Total Bilirubin (0.2-1.3) mg/dL AST (14-36) U/L ALT (0-35) U/L Alkaline Phosphatase (38-126) U/L Troponin I < 0.012 (0.000-0.034) ng/mL NT-Pro-B Natriuret Pep (0-1800) pg/mL Serum Total Protein (6.3-8.2) g/dL Albumin (3.5-5.0) g/dL 07/13/19 07/13/19 07/13/19 Range/Units 16:35 16:40 16:40 WBC (4.0-10.5) K/mm3 RBC (4.1-5.4) M/mm3 Hgb (12.0-16.0) gm/dl Hct (35-47) % MCV (78-100) fl MCH (26-32) pg MCHC (32-36) g/dl RDW (11.5-14.0) % Plt Count (150-450) K/mm3 MPV (7.5-11.0) fl Gran % (36.0-66.0) % Eos # (Auto) (0-0.5) Absolute Lymphs (auto) (1.0-4.6) Absolute Monos (auto) (0.0-1.3) Lymphocytes % (24.0-44.0) % Monocytes % (0.0-12.0) % Eosinophils % (0.00-5.0) % Basophils % (0.0-0.4) % Absolute Granulocytes (1.4-6.9) Basophils # (0-0.4) PT (9.95-12.35) SECONDS INR (0.8-3.0) D-Dimer (215-500) ng/mL Sodium 144 (137-145) mmol/L Potassium 4.4 (3.5-5.1) mmol/L Chloride 113 H (98-107) mmol/L Carbon Dioxide 22 (22-30) mmol/L Anion Gap 13.1 (5-15) MEQ/L BUN 27 H (7-17) mg/dL Creatinine 1.08 H (0.52-1.04) mg/dL Estimated GFR 51.0 ML/MIN Glucose 109 H (74-106) mg/dL Lactic Acid 1.3 (0.4-2.0) Calcium 10.1 (8.4-10.2) mg/dL Magnesium (1.6-2.3) mg/dL Ferritin (11.1-264) ng/mL Total Bilirubin (0.2-1.3) mg/dL AST (14-36) U/L ALT (0-35) U/L Alkaline Phosphatase (38-126) U/L Troponin I < 0.012 (0.000-0.034) ng/mL NT-Pro-B Natriuret Pep (0-1800) pg/mL Serum Total Protein (6.3-8.2) g/dL Albumin (3.5-5.0) g/dL 07/13/19 07/13/19 07/14/19 Range/Units 21:02 23:25 03:10 WBC (4.0-10.5) K/mm3 RBC (4.1-5.4) M/mm3 Hgb (12.0-16.0) gm/dl Hct (35-47) % MCV (78-100) fl MCH (26-32) pg MCHC (32-36) g/dl RDW (11.5-14.0) % Plt Count (150-450) K/mm3 MPV (7.5-11.0) fl Gran % (36.0-66.0) % Eos # (Auto) (0-0.5) Absolute Lymphs (auto) (1.0-4.6) Absolute Monos (auto) (0.0-1.3) Lymphocytes % (24.0-44.0) % Monocytes % (0.0-12.0) % Eosinophils % (0.00-5.0) % Basophils % (0.0-0.4) % Absolute Granulocytes (1.4-6.9) Basophils # (0-0.4) PT (9.95-12.35) SECONDS INR (0.8-3.0) D-Dimer (215-500) ng/mL Sodium (137-145) mmol/L Potassium (3.5-5.1) mmol/L Chloride (98-107) mmol/L Carbon Dioxide (22-30) mmol/L Anion Gap (5-15) MEQ/L BUN (7-17) mg/dL Creatinine (0.52-1.04) mg/dL Estimated GFR ML/MIN Glucose (74-106) mg/dL Lactic Acid (0.4-2.0) Calcium (8.4-10.2) mg/dL Magnesium (1.6-2.3) mg/dL Ferritin (11.1-264) ng/mL Total Bilirubin (0.2-1.3) mg/dL AST (14-36) U/L ALT (0-35) U/L Alkaline Phosphatase (38-126) U/L Troponin I < 0.012 < 0.012 0.012 (0.000-0.034) ng/mL NT-Pro-B Natriuret Pep (0-1800) pg/mL Serum Total Protein (6.3-8.2) g/dL Albumin (3.5-5.0) g/dL 07/14/19 07/14/19 Range/Units 03:10 03:10 WBC 7.4 (4.0-10.5) K/mm3 RBC 3.63 L (4.1-5.4) M/mm3 Hgb 11.0 L (12.0-16.0) gm/dl Hct 34.3 L (35-47) % MCV 94.5 (78-100) fl MCH 30.3 (26-32) pg MCHC 32.1 (32-36) g/dl RDW 13.3 (11.5-14.0) % Plt Count 282 (150-450) K/mm3 MPV 10.1 (7.5-11.0) fl Gran % 76.9 H (36.0-66.0) % Eos # (Auto) 0.02 (0-0.5) Absolute Lymphs (auto) 1.03 (1.0-4.6) Absolute Monos (auto) 0.62 (0.0-1.3) Lymphocytes % 14.0 L (24.0-44.0) % Monocytes % 8.4 (0.0-12.0) % Eosinophils % 0.3 (0.00-5.0) % Basophils % 0.4 (0.0-0.4) % Absolute Granulocytes 5.65 (1.4-6.9) Basophils # 0.03 (0-0.4) PT (9.95-12.35) SECONDS INR (0.8-3.0) D-Dimer (215-500) ng/mL Sodium 143 (137-145) mmol/L Potassium 3.8 (3.5-5.1) mmol/L Chloride 109 H (98-107) mmol/L Carbon Dioxide 23 (22-30) mmol/L Anion Gap 14.8 (5-15) MEQ/L BUN 24 H (7-17) mg/dL Creatinine 1.15 H (0.52-1.04) mg/dL Estimated GFR 47.4 ML/MIN Glucose 114 H (74-106) mg/dL Lactic Acid (0.4-2.0) Calcium 10.5 H (8.4-10.2) mg/dL Magnesium (1.6-2.3) mg/dL Ferritin (11.1-264) ng/mL Total Bilirubin 0.90 (0.2-1.3) mg/dL AST 24 (14-36) U/L ALT 21 (0-35) U/L Alkaline Phosphatase 103 (38-126) U/L Troponin I (0.000-0.034) ng/mL NT-Pro-B Natriuret Pep 4330 H (0-1800) pg/mL Serum Total Protein 7.5 (6.3-8.2) g/dL Albumin 4.1 (3.5-5.0) g/dL - Radiology Impressions Radiology Exams & Impressions: Radiology Procedures Category Date Time Status CHEST 1 VIEW (PORTABLE) Stat Exams 07/13/19 14:22 Completed CHEST WITH CONTRAST [CT] Stat Exams 07/13/19 17:11 Completed - Other Procedures and Tests Respiratory Therapy 07/13/19 20:16 EKG DAILY 07/13/19 21:07 Oxygen Nasal Cannula 4 lpm Assessment/Plan (1) Atrial fibrillation with RVR Current Visit: Yes Status: Acute Assessment & Plan: persists in spite of cardizem at 15mg/hr gtt. bp is stable, will add digoxin at this time. on lovenox therapeutic dose, will likely transition to po eliquis on discharge with a fib and PE Code(s): I48.91 - UNSPECIFIED ATRIAL FIBRILLATION (2) Congestive heart failure Current Visit: Yes Status: Acute Assessment & Plan: diuresing with IV lasix Code(s): I50.9 - HEART FAILURE, UNSPECIFIED (3) Pulmonary emboli Current Visit: Yes Status: Acute Assessment & Plan: on lovenox Code(s): I26.99 - OTHER PULMONARY EMBOLISM WITHOUT ACUTE COR PULMONALE (4) Do not resuscitate status Current Visit: Yes Status: Acute
[2019-07-14] MEDS: Lanoxin 0.5 MG/2 ML INJECTION IV SCH ×3 (12:27→23:50)
[2019-07-14] MEDS: Lopressor 50 MG PO SCH (18:02)
[2019-07-15] MEDS: Lopressor 50 MG PO SCH ×3 (02:31→21:47)
[2019-07-15 05:57] LABS: Absolute Neutrophil Ct (ANC) 5.68 (1.4-6.9); BASOPHIL % 0.6 % (0.0-0.4); Basophil (Absolute #) 0.05 (0-0.4); Eosinophil % 3.1 % (0.00-5.0); Eosinophil (Absolute #) 0.28 (0-0.5); Hematocrit 37.3 % (35-47); Hemoglobin 11.8 gm/dl (12.0-16.0); Lymphocyte (Absolute #) 2.06 (1.0-4.6); Lymphocytes % 23.1 % (24.0-44.0); Mean Cell Volume 94.4 fl (78-100); Mean Corpuscular Hemoglobin 29.9 pg (26-32); Mean Corpuscular Hgb Concent. 31.6 g/dl (32-36); Mean Platelet Volume 9.8 fl (7.5-11.0); Monocyte (Absolute #) 0.85 (0.0-1.3); Monocytes % 9.5 % (0.0-12.0); Neutrophil % 63.7 % (36.0-66.0); Platelet Count 296 K/mm3 (150-450); Red Blood Count 3.95 M/mm3 (4.1-5.4); White Blood Count 8.9 K/mm3 (4.0-10.5)
[2019-07-15 06:10] LABS: ANION GAP 12.8 MEQ/L (5-15); Calcium 10.2 mg/dL (8.4-10.2); Creatinine 1 1.5 mg/dL (0.52-1.04); MAGNESIUM 2.1 mg/dL (1.6-2.3); Potassium 3.7 mmol/L (3.5-5.1)
--- NOTE | 2019-07-15 09:00 | PCM.NOTE ---
Date and Time: 07/15/19857 Subjective Assessment: rate is much better controlled with IV dig loading and po lopressor. patient reports she is feeling much better, her breathing is improved. Objective Exam General Appearance: no apparent distress, alert Neurologic Exam: alert, oriented x 3 Respiratory Exam: normal breath sounds, lungs clear, No respiratory distress Cardiovascular Exam: irregular Gastrointestinal/Abdomen Exam: soft, No tenderness, No mass Extremity Exam: normal inspection, normal range of motion OBJECTIVE DATA Vital Signs: Vital Signs - 24 hr Temp Pulse Resp BP Pulse Ox 07/15/19 08:00 98.2 F 67 16 94/54 07/15/19 06:52 91 L 07/15/19 05:46 98.4 F 103 H 16 111/57 92 L 07/15/19 03:59 98.0 F 70 19 105/56 91 L 07/15/19 03:17 86 20 07/15/19 01:58 91 H 18 91 L 07/15/19 01:55 78 18 117/64 90 L 07/15/19 00:18 137/66 07/14/19 23:44 100 H 07/14/19 23:40 100 H 21 89 L 07/14/19 22:00 108 H 22 132/60 94 L 07/14/19 20:26 96 07/14/19 20:20 97.8 F 132 H 22 140/83 92 L 07/14/19 19:56 114 H 20 07/14/19 18:00 97.9 F 125 H 18 151/73 91 L 07/14/19 16:00 120 H 16 07/14/19 15:51 98 F 120 H 16 137/78 92 L 07/14/19 14:00 97.6 F 122 H 16 142/70 96 07/14/19 13:00 98.0 F 122 H 18 115/68 96 07/14/19 11:51 128 H 18 07/14/19 11:33 132 H 18 121/75 07/14/19 10:36 137 H 18 137/84 94 L 07/14/19 10:00 137 H 18 140/83 94 L Oxygen-Last 24 hours Oxygen Flowrate (L/min)-RT 3 Oxygen Flowrate (L/min)-RT 5 Oxygen Flowrate (L/min)-RT 4 Pain Assessment - Last Documented Pain Intensity 0 Pain Scale Used 0-10 Pain Scale Intake and Output: Intake & Output 07/12/19 07/13/19 07/14/19 07/15/19 11:59 11:59 11:59 11:59 Intake Total 632 860 Output Total 8752 2980 Balance -1168 -2410 Weight 53.3 kg Lab Results: Lab Results-Last 24 Hours 07/14/19 07/15/19 07/15/19 Range/Units 05:00 05:20 05:20 WBC 8.9 (4.0-10.5) K/mm3 RBC 3.95 L (4.1-5.4) M/mm3 Hgb 11.8 L (12.0-16.0) gm/dl Hct 37.3 (35-47) % MCV 94.4 (78-100) fl MCH 29.9 (26-32) pg MCHC 31.6 L (32-36) g/dl RDW 13.0 (11.5-14.0) % Plt Count 296 (150-450) K/mm3 MPV 9.8 (7.5-11.0) fl Gran % 63.7 (36.0-66.0) % Eos # (Auto) 0.28 (0-0.5) Absolute Lymphs (auto) 2.06 (1.0-4.6) Absolute Monos (auto) 0.85 (0.0-1.3) Lymphocytes % 23.1 L (24.0-44.0) % Monocytes % 9.5 (0.0-12.0) % Eosinophils % 3.1 (0.00-5.0) % Basophils % 0.6 (0.0-0.4) % Absolute Granulocytes 5.68 (1.4-6.9) Basophils # 0.05 (0-0.4) Sodium 141 (137-145) mmol/L Potassium 3.7 (3.5-5.1) mmol/L Chloride 101 (98-107) mmol/L Carbon Dioxide 31 H (22-30) mmol/L Anion Gap 12.8 (5-15) MEQ/L BUN 26 H (7-17) mg/dL Creatinine 1.50 H (0.52-1.04) mg/dL Estimated GFR 34.9 ML/MIN Glucose 94 (74-106) mg/dL Calcium 10.2 (8.4-10.2) mg/dL Magnesium 2.1 (1.6-2.3) mg/dL TSH 3rd Generation 2.020 (0.47-4.68) mIU/L Digoxin (0.8-1.9) ng/mL 07/15/19 Range/Units 05:20 WBC (4.0-10.5) K/mm3 RBC (4.1-5.4) M/mm3 Hgb (12.0-16.0) gm/dl Hct (35-47) % MCV (78-100) fl MCH (26-32) pg MCHC (32-36) g/dl RDW (11.5-14.0) % Plt Count (150-450) K/mm3 MPV (7.5-11.0) fl Gran % (36.0-66.0) % Eos # (Auto) (0-0.5) Absolute Lymphs (auto) (1.0-4.6) Absolute Monos (auto) (0.0-1.3) Lymphocytes % (24.0-44.0) % Monocytes % (0.0-12.0) % Eosinophils % (0.00-5.0) % Basophils % (0.0-0.4) % Absolute Granulocytes (1.4-6.9) Basophils # (0-0.4) Sodium (137-145) mmol/L Potassium (3.5-5.1) mmol/L Chloride (98-107) mmol/L Carbon Dioxide (22-30) mmol/L Anion Gap (5-15) MEQ/L BUN (7-17) mg/dL Creatinine (0.52-1.04) mg/dL Estimated GFR ML/MIN Glucose (74-106) mg/dL Calcium (8.4-10.2) mg/dL Magnesium (1.6-2.3) mg/dL TSH 3rd Generation (0.47-4.68) mIU/L Digoxin 3.6 H* (0.8-1.9) ng/mL Radiology Exams: Radiology Procedures Category Date Time Status CHEST 1 VIEW (PORTABLE) Stat Exams 07/13/19 14:22 Completed CHEST WITH CONTRAST [CT] Stat Exams 07/13/19 17:11 Completed Assessment/Plan (1) Atrial fibrillation with RVR Current Visit: Yes Status: Acute Assessment & Plan: rate better controlled, po lopressor and po digoxin. on eliquis Code(s): I48.91 - UNSPECIFIED ATRIAL FIBRILLATION (2) Congestive heart failure Current Visit: Yes Status: Acute Code(s): I50.9 - HEART FAILURE, UNSPECIFIED (3) Pulmonary emboli Current Visit: Yes Status: Acute Assessment & Plan: eliquis Code(s): I26.99 - OTHER PULMONARY EMBOLISM WITHOUT ACUTE COR PULMONALE (4) Do not resuscitate status Current Visit: Yes Status: Acute
[2019-07-15] MEDS: ELIQUIS 2.5 MG TABLET PO SCH ×2 (10:26→21:47)
[2019-07-15] MEDS: LASIX 20 MG PO SCH (10:26)
[2019-07-15] MEDS: Lanoxin 0.125MG TABLET PO SCH (10:26)
[2019-07-16 04:37] LABS: Absolute Neutrophil Ct (ANC) 4.23 (1.4-6.9); BASOPHIL % 0.5 % (0.0-0.4); Basophil (Absolute #) 0.04 (0-0.4); Eosinophil % 4.6 % (0.00-5.0); Eosinophil (Absolute #) 0.35 (0-0.5); Hematocrit 35.4 % (35-47); Hemoglobin 11.2 gm/dl (12.0-16.0); Lymphocyte (Absolute #) 2.13 (1.0-4.6); Mean Cell Volume 94.4 fl (78-100); Mean Corpuscular Hemoglobin 29.9 pg (26-32); Mean Corpuscular Hgb Concent. 31.6 g/dl (32-36); Monocyte (Absolute #) 0.86 (0.0-1.3); Monocytes % 11.3 % (0.0-12.0); Neutrophil % 55.6 % (36.0-66.0); Platelet Count 280 K/mm3 (150-450); Red Blood Count 3.75 M/mm3 (4.1-5.4); Red Cell Distribution Width 12.9 % (11.5-14.0); White Blood Count 7.6 K/mm3 (4.0-10.5)
[2019-07-16 05:22] LABS: ANION GAP 14.4 MEQ/L (5-15); Calcium 9.9 mg/dL (8.4-10.2); Creatinine 1 1.52 mg/dL (0.52-1.04); Potassium 3.4 mmol/L (3.5-5.1)
--- NOTE | 2019-07-16 08:45 | PCM.DS ---
Discharge Summary Date of Admission: 07/13/19 20:14 Admitting Physician: MARA INIGUEZ Primary Care Provider: MARA INIGUEZ Allergies Allergies No Known Drug Allergies Allergy (Verified 07/13/19 23:01) Hospital Summary - Hospital Course Hospital Course: patient was admitted with acute onset of shortness of breath, found to have new onset a fib with rvr and new small PE, started on eliquis and converted with lopressor and digoxin. she is on room air, ambulatory and feels great/ready for discharge today - Vitals & Intake/Output Vital Signs: Vital Signs Temperature 97.7 F 07/16/19 05:43 Pulse Rate 72 07/16/19 08:00 Respiratory Rate 18 07/16/19 08:00 Blood Pressure 121/65 07/16/19 05:43 O2 Sat by Pulse Oximetry 95 07/16/19 07:30 Intake & Output: Intake & Output 07/13/19 07/14/19 07/15/19 07/16/19 11:59 11:59 11:59 11:59 Intake Total 632 860 960 Output Total 1800 3650 1700 Balance -1168 -2790 -740 Weight 53.3 kg 51.4 kg 51.4 kg - Lab Result Diagrams: 07/16/19 04:20 07/16/19 04:20 Lab Results-Last 24 Hrs: Lab Results-Last 24 Hours 07/13/19 07/16/19 07/16/19 Range/Units 18:30 04:20 04:20 WBC 7.6 (4.0-10.5) K/mm3 RBC 3.75 L (4.1-5.4) M/mm3 Hgb 11.2 L (12.0-16.0) gm/dl Hct 35.4 (35-47) % MCV 94.4 (78-100) fl MCH 29.9 (26-32) pg MCHC 31.6 L (32-36) g/dl RDW 12.9 (11.5-14.0) % Plt Count 280 (150-450) K/mm3 MPV 9.0 (7.5-11.0) fl Gran % 55.6 (36.0-66.0) % Eos # (Auto) 0.35 (0-0.5) Absolute Lymphs (auto) 2.13 (1.0-4.6) Absolute Monos (auto) 0.86 (0.0-1.3) Lymphocytes % 28.0 (24.0-44.0) % Monocytes % 11.3 (0.0-12.0) % Eosinophils % 4.6 (0.00-5.0) % Basophils % 0.5 (0.0-0.4) % Absolute Granulocytes 4.23 (1.4-6.9) Basophils # 0.04 (0-0.4) Sodium (137-145) mmol/L Potassium (3.5-5.1) mmol/L Chloride (98-107) mmol/L Carbon Dioxide (22-30) mmol/L Anion Gap (5-15) MEQ/L BUN (7-17) mg/dL Creatinine (0.52-1.04) mg/dL Estimated GFR ML/MIN Glucose (74-106) mg/dL Calcium (8.4-10.2) mg/dL Digoxin 1.9 (0.8-1.9) ng/mL COVID-19 (ET[facility]INA) SEE SEPARATE REPORT 07/16/19 Range/Units 04:20 WBC (4.0-10.5) K/mm3 RBC (4.1-5.4) M/mm3 Hgb (12.0-16.0) gm/dl Hct (35-47) % MCV (78-100) fl MCH (26-32) pg MCHC (32-36) g/dl RDW (11.5-14.0) % Plt Count (150-450) K/mm3 MPV (7.5-11.0) fl Gran % (36.0-66.0) % Eos # (Auto) (0-0.5) Absolute Lymphs (auto) (1.0-4.6) Absolute Monos (auto) (0.0-1.3) Lymphocytes % (24.0-44.0) % Monocytes % (0.0-12.0) % Eosinophils % (0.00-5.0) % Basophils % (0.0-0.4) % Absolute Granulocytes (1.4-6.9) Basophils # (0-0.4) Sodium 138 (137-145) mmol/L Potassium 3.4 L (3.5-5.1) mmol/L Chloride 99 (98-107) mmol/L Carbon Dioxide 28 (22-30) mmol/L Anion Gap 14.4 (5-15) MEQ/L BUN 38 H (7-17) mg/dL Creatinine 1.52 H (0.52-1.04) mg/dL Estimated GFR 34.4 ML/MIN Glucose 122 H (74-106) mg/dL Calcium 9.9 (8.4-10.2) mg/dL Digoxin (0.8-1.9) ng/mL COVID-19 (ETELVINA) - Procedures and Test Procedures and Tests throughout Hospitalization: Therapy Orders & Screens 07/13/19 20:16 Respiratory Therapy Consult ROUTINE Comment: Reason For Exam: 07/13/19 21:07 Oxygen Nasal Cannula 4 lpm Comment: Discharge Exam General Appearance: no apparent distress, alert Neurologic Exam: alert, oriented x 3 Respiratory Exam: normal breath sounds, lungs clear, No respiratory distress Cardiovascular Exam: regular rate/rhythm, normal heart sounds Gastrointestinal/Abdomen Exam: soft, No tenderness, No mass Extremity Exam: normal inspection, normal range of motion Skin Exam: normal color, warm, dry Final Diagnosis/Problem List - Final Discharge Diagnosis/Problem (1) Atrial fibrillation with RVR Current Visit: Yes Status: Acute Assessment & Plan: home on po lopressor and eliquis Code(s): I48.91 - UNSPECIFIED ATRIAL FIBRILLATION (2) Congestive heart failure Current Visit: Yes Status: Acute Assessment & Plan: related to a fib, euvolemic now. will monitor volume status at home, no diuretic since she is now sinus Code(s): I50.9 - HEART FAILURE, UNSPECIFIED (3) Pulmonary emboli Current Visit: Yes Status: Acute Code(s): I26.99 - OTHER PULMONARY EMBOLISM WITHOUT ACUTE COR PULMONALE (4) Do not resuscitate status Current Visit: Yes Status: Acute - Discharge Disposition: Home, Self-Care Condition: Good Prescriptions: New Apixaban [Eliquis 2.5 mg Tablet] 2.5 mg PO BID #60 tablet Metoprolol Tartrate 50 mg [Lopressor 50 MG] 50 mg PO BID #60 tablet Discontinued Aspirin 81 gm Chew [Baby Aspirin 81 mg Chew] 81 mg PO DAILY Follow up with: JOSE ZENG MD [Family Provider] - 1 Week RADHA AVILES [CONSULTING PHYSICIAN] - Call for Appointment (consult for new onset a fib)
[2019-07-16] MEDS: ELIQUIS 2.5 MG TABLET PO SCH (09:22)
[2019-07-16] MEDS: LASIX 20 MG PO SCH (09:22)
[2019-07-16] MEDS: Lopressor 50 MG PO SCH (09:22)
[2019-07-16] MEDS: Lanoxin 0.125MG TABLET PO SCH (09:22)
[2019-07-16 12:39] VITALS: BP 145/65; PULSE 83; O2SAT 95
== END 2019-07-16 13:50 | disposition home or self-care (01) | DRG 308 ==
LOC: ED 13:56 → MED SURG 20:14
PROVIDERS: ADMIT Family Medicine; ATTEND Family Medicine
DX: I48.91 Unspecified atrial fibrillation (principal); I26.99 Other pulmonary embolism without acute cor pulmonale; I50.9 Heart failure, unspecified; Z79.899 Other long term (current) drug therapy; Z79.01 Long term (current) use of anticoagulants
CPT/HCPCS: 36000; 36415; 71045; 71260; 80048; 80053; 80162; 82728; 83605; 83735; 83880; 84443; 84484; 85025; 85379; 85610; 93005; 93041; 94760; 94762; 96365; 96372; 96374; 96375; 99285; U0001; 99000; J1160; J1650; J1940; A9270-GY

== ENCOUNTER 2021-02-22 10:50 | Emergency (ER) | payer MEDICARE ==
[2021-02-22] MEDS ORDERED: Sodium Chloride 0.9% 1000 ML 1,000 ML IV SCH (11:00)
[2021-02-22] MEDS ORDERED: Lasix 20 MG/2 ML IV STA (11:04)
[2021-02-22] MEDS ORDERED: Sodium Chloride 0.9% 1000 ML 1,000 ML ONE (11:17)
[2021-02-22 11:39] LABS: Absolute Neutrophil Ct (ANC) 6.51 (1.4-6.9); BASOPHIL % 0.3 % (0.0-0.4); Basophil (Absolute #) 0.03 (0-0.4); Eosinophil (Absolute #) 0.09 (0-0.5); Hematocrit 35.9 % (35-47); Hemoglobin 10.8 gm/dl (12.0-16.0); Lymphocyte (Absolute #) 1.28 (1.0-4.6); Lymphocytes % 14.9 % (24.0-44.0); Mean Cell Volume 93.7 fl (78-100); Mean Corpuscular Hemoglobin 28.2 pg (26-32); Mean Corpuscular Hgb Concent. 30.1 g/dl (32-36); Mean Platelet Volume 9.8 fl (7.5-11.0); Monocytes % 8.1 % (0.0-12.0); Neutrophil % 75.7 % (36.0-66.0); Platelet Count 293 K/mm3 (150-450); Red Blood Count 3.83 M/mm3 (4.1-5.4); White Blood Count 8.6 K/mm3 (4.0-10.5)
[2021-02-22 11:54] LABS: INR 1.39 (0.8-3.0); PROTIME 16.4 SECONDS (9.4-12.5)
[2021-02-22 12:07] LABS: ALBUMIN 4.7 g/dL (3.5-5.0); ANION GAP 16.8 MEQ/L (5-15); BILIRUBIN,TOTAL 1.1 mg/dL (0.2-1.3); Calcium 10.3 mg/dL (8.4-10.2); Creatinine 1 2.09 mg/dL (0.52-1.04); EST GLOMERULAR FILTRATION RATE 23.7 ML/MIN; MAGNESIUM 2.3 mg/dL (1.6-2.3); Potassium 4.1 mmol/L (3.5-5.1); Total Protein 8.1 g/dL (6.3-8.2)
[2021-02-22 12:11] VITALS: BP 130/75
--- NOTE | 2021-02-22 13:03 | ERPHSYRPT ---
- History of Present Illness Time Seen by Provider: 02/22/21 11:00 Source: patient Exam Limitations: no limitations Patient Subjective Stated Complaint: PT states "I have had a hard time breathing for the past couple of days." Triage Nursing Assessment: Pt presented alert and oriented X 3, skin pwd pt able to speak in clear full sentences pt slightly tachypneic. Pt resting comfortably on the bed. Physician History: Patient is an 89-year-old white female who presents with a history of prior pulmonary emboli and CHF. Her in June of this year she had 2 episodes of pulmonary emboli she is on blood thinners. The increasing shortness of breath is been over the past 2 days. Timing/Duration: day(s) (2) Activities at Onset: none Severity of Dyspnea-Max: moderate Severity of Dyspnea-Current: moderate Possible Cause: occasional episodes Associated Symptoms: cough, edema, leg swelling Allergies/Adverse Reactions: No Known Drug Allergies Allergy (Verified 07/13/19 23:01) Home Medications: Amlodipine Besylate/Benazepril [Amlodipine-Benazepril 5-10 mg] 1 each PO DAILY 02/22/21 [History] Levothyroxine Sodium 50 mcg PO DAILY 02/22/21 [History] Hx Tetanus, Diphtheria Vaccination/Date Given: Yes Hx Influenza Vaccination/Date Given: No Hx Pneumococcal Vaccination/Date Given: No Immunizations Up to Date: Yes Travel Risk - International Travel Have you traveled outside of the country in past 3 weeks: No - Coronavirus Screening Are you exhibiting any of the following symptoms?: No Close contact with a COVID-19 positive Pt in past 14-21 Days: No - Vaccine Status Have you recieved a Covid-19 vaccination: Yes 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[employer] - Vaccination Dates Date of 2cond Vaccination (if applicable): 04/2020 - Review of Systems Constitutional: No Fever, No Chills Eyes: No Symptoms Ears, Nose, & Throat: No Symptoms Respiratory: Dyspnea, No Cough Cardiac: No Chest Pain, No Edema, No Syncope Abdominal/Gastrointestinal: No Abdominal Pain, No Nausea, No Vomiting, No Diarrhea Genitourinary Symptoms: No Dysuria Musculoskeletal: No Back Pain, No Neck Pain Skin: No Rash Neurological: No Dizziness, No Focal Weakness, No Sensory Changes Psychological: No Symptoms Endocrine: No Symptoms All Other Systems: Reviewed and Negative - Past Medical History Pertinent Past Medical History: Yes Neurological History: No Pertinent History ENT History: No Pertinent History Cardiac History: Hypertension Respiratory History: No Pertinent History Endocrine Medical History: Hypothyroidism Musculoskeletal History: No Pertinent History GI Medical History: No Pertinent History History: No Pertinent History Psycho-Social History: No Pertinent History Female Reproductive Disorders: No Pertinent History - Past Surgical History Past Surgical History: Yes Neuro Surgical History: No Pertinent History Cardiac: No Pertinent History Respiratory: No Pertinent History Gastrointestinal: No Pertinent History Genitourinary: No Pertinent History Musculoskeletal: No Pertinent History Female Surgical History: Hysterectomy Other Surgical History: 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, back surgery, tear duct surgery, - Social History Smoking Status: Never smoker Exposure to second hand smoke: No Drug Use: none Patient Lives Alone: Yes - Nursing Vital Signs Nursing Vital Signs: Initial Vital Signs Temperature 97.2 F 02/22/21 10:50 Pulse Rate 50 L 02/22/21 10:50 Respiratory Rate 24 02/22/21 10:50 Blood Pressure 136/76 02/22/21 10:50 O2 Sat by Pulse Oximetry 86 L 02/22/21 10:50 Pain Scale Pain Intensity 0 - Physical Exam General Appearance: mild distress, alert Eye Exam: PERRL/EOMI Neck Exam: normal inspection, supple Respiratory Exam: crackles/rales Cardiovascular/Chest Exam: normal heart sounds, regular rate/rhythm Abdominal/Gastrointestinal Exam: soft, No tenderness, No distention, No mass Extremity Exam: non-tender, normal range of motion, normal inspection, no calf tenderness, no pedal edema Neurologic Exam: alert, oriented x 3, cooperative, 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, sensation nml, No motor deficits Skin Exam: normal color, warm, No dry SpO2 Interpretation: normal SpO2: 92 O2 Delivery: Room Air - Course Nursing assessment & vital signs reviewed: Yes EKG Interpreted by Me: RATE (49), NORMAL AXIS, NORMAL INTERVALS, Non-specific ST Changes - Radiology Exams Chest X-ray Interpretation: Interpreted by me, Other (Right pleural effusion) Ordered Tests: Active Orders 24 hr Category Date Time Status EKG-ER Only STAT Care 02/22/21 10:57 Active IV Insertion STAT Care 02/22/21 10:57 Active CHEST 1 VIEW (PORTABLE) Stat Exams 02/22/21 11:05 Taken BLOOD CULTURE Stat Lab 02/22/21 11:45 Received CBC W DIFF Stat Lab 02/22/21 11:00 Completed CMP Stat Lab 02/22/21 11:00 Completed D-DIMER QUANTITATIVE Stat Lab 02/22/21 11:00 Completed Lactic Acid Stat Lab 02/22/21 11:10 Completed MAGNESIUM Stat Lab 02/22/21 11:00 Completed NT PRO BNP Stat Lab 02/22/21 11:00 Completed PROTIME WITH INR Stat Lab 02/22/21 11:00 Completed PTT Stat Lab 02/22/21 11:00 Completed TROPONIN Q3H Lab 02/22/21 11:47 Completed TROPONIN Q3H Lab 02/22/21 14:00 Ordered TROPONIN Q3H Lab 02/22/21 17:00 Ordered TROPONIN Q3H Lab 02/22/21 20:00 Ordered TROPONIN Q3H Lab 02/22/21 23:00 Ordered UA W/RFX UR CULTURE Stat Lab 02/22/21 10:58 Ordered Medication Summary Generic Name Dose Route Start Last Admin Trade Name Freq PRN Reason Stop Dose Admin Sodium Chloride 1,000 mls @ 50 mls/hr 02/22/21 11:00 Sodium Chloride 0.9% 1000 Ml IV 03/24/21 10:59 .Q20H JANAY Discontinued Medications Generic Name Dose Route Start Last Admin Trade Name Freq PRN Reason Stop Dose Admin Furosemide 20 mg 02/22/21 11:04 Furosemide 20 Mg/Vial IV 02/22/21 11:05 ONCE STA Lab/Rad Data: Laboratory Result Diagrams 02/22/21 11:00 02/22/21 11:00 Laboratory Results 02/22/21 02/22/21 02/22/21 Range/Units 11:47 11:10 11:00 WBC (4.0-10.5) K/mm3 RBC (4.1-5.4) M/mm3 Hgb (12.0-16.0) gm/dl Hct (35-47) % MCV (78-100) fl MCH (26-32) pg MCHC (32-36) g/dl RDW (11.5-14.0) % Plt Count (150-450) K/mm3 MPV (7.5-11.0) fl Gran % (36.0-66.0) % Eos # (Auto) (0-0.5) Absolute Lymphs (auto) (1.0-4.6) Absolute Monos (auto) (0.0-1.3) Lymphocytes % (24.0-44.0) % Monocytes % (0.0-12.0) % Eosinophils % (0.00-5.0) % Basophils % (0.0-0.4) % Absolute Granulocytes (1.4-6.9) Basophils # (0-0.4) PT 16.4 H (9.4-12.5) SECONDS INR 1.39 (0.8-3.0) APTT 38.0 H (25.1-36.5) SECONDS D-Dimer 703 H* (215-500) ng/mL Sodium (137-145) mmol/L Potassium (3.5-5.1) mmol/L Chloride (98-107) mmol/L Carbon Dioxide (22-30) mmol/L Anion Gap (5-15) MEQ/L BUN (7-17) mg/dL Creatinine (0.52-1.04) mg/dL Estimated GFR ML/MIN Glucose (74-106) mg/dL Lactic Acid 1.4 (0.4-2.0) Calcium (8.4-10.2) mg/dL Magnesium (1.6-2.3) mg/dL Total Bilirubin (0.2-1.3) mg/dL AST (14-36) U/L ALT (0-35) U/L Alkaline Phosphatase (38-126) U/L Troponin I < 0.012 (0.000-0.034) ng/mL NT-Pro-B Natriuret Pep (0-1800) pg/mL Serum Total Protein (6.3-8.2) g/dL Albumin (3.5-5.0) g/dL 02/22/21 02/22/21 Range/Units 11:00 11:00 WBC 8.6 (4.0-10.5) K/mm3 RBC 3.83 L (4.1-5.4) M/mm3 Hgb 10.8 L (12.0-16.0) gm/dl Hct 35.9 (35-47) % MCV 93.7 (78-100) fl MCH 28.2 (26-32) pg MCHC 30.1 L (32-36) g/dl RDW 14.0 (11.5-14.0) % Plt Count 293 (150-450) K/mm3 MPV 9.8 (7.5-11.0) fl Gran % 75.7 H (36.0-66.0) % Eos # (Auto) 0.09 (0-0.5) Absolute Lymphs (auto) 1.28 (1.0-4.6) Absolute Monos (auto) 0.70 (0.0-1.3) Lymphocytes % 14.9 L (24.0-44.0) % Monocytes % 8.1 (0.0-12.0) % Eosinophils % 1.0 (0.00-5.0) % Basophils % 0.3 (0.0-0.4) % Absolute Granulocytes 6.51 (1.4-6.9) Basophils # 0.03 (0-0.4) PT (9.4-12.5) SECONDS INR (0.8-3.0) APTT (25.1-36.5) SECONDS D-Dimer (215-500) ng/mL Sodium 144 (137-145) mmol/L Potassium 4.1 (3.5-5.1) mmol/L Chloride 108 H (98-107) mmol/L Carbon Dioxide 23 (22-30) mmol/L Anion Gap 16.8 H (5-15) MEQ/L BUN 34 H (7-17) mg/dL Creatinine 2.09 H (0.52-1.04) mg/dL Estimated GFR 23.7 ML/MIN Glucose 106 (74-106) mg/dL Lactic Acid (0.4-2.0) Calcium 10.3 H (8.4-10.2) mg/dL Magnesium 2.3 (1.6-2.3) mg/dL Total Bilirubin 1.10 (0.2-1.3) mg/dL AST 22 (14-36) U/L ALT 17 (0-35) U/L Alkaline Phosphatase 126 (38-126) U/L Troponin I (0.000-0.034) ng/mL NT-Pro-B Natriuret Pep 6350 H (0-1800) pg/mL Serum Total Protein 8.1 (6.3-8.2) g/dL Albumin 4.7 (3.5-5.0) g/dL - Progress Progress: unchanged Progress Note: 02/22/21 13:01 Patient refused IV fluids and refused IV medications. After the work-up was complete we discussed findings with her she agreed to take a dose of IV Lasix and to take a prescription for Lasix until she could follow-up with Dr. Zeng it she refused to stay in the hospital. Blood Culture(s) Obtained: No Antibiotics given: No - Departure Departure Disposition: Home Clinical Impression: Congestive heart failure Condition: Fair Critical Care Time: No Referrals: JOSE ZENG MD [Primary Care Provider] - Follow up/PCP as directed Instructions: Heart Failure, Shortness of Breath (Dyspnea) (DC), Heart Failure, Adult (DC) Prescriptions: Furosemide 20 mg [Lasix 20 mg] 20 mg PO BID #10 tablet
[2021-02-22 13:07] VITALS: PULSE 50; O2SAT 91
--- NOTE | 2021-02-22 18:50 | XRAY ---
Indication: Short of breath. Comparison: September 10, 2020. Portable chest demonstrates new cardiomegaly and moderate bibasilar effusions/atelectasis right greater than left favoring cardiac decompensation/CHF. Superimposed pneumonia not completely excluded. Bony thorax intact again with osteopenia, degenerative changes, old left clavicle fracture, and old left rib fractures.
== END 2021-02-22 13:17 | disposition home or self-care (01) ==
LOC: ED 10:50
DX: I11.0 Hypertensive heart disease with heart failure (principal); I50.9 Heart failure, unspecified; Z86.711 Personal history of pulmonary embolism; Z79.01 Long term (current) use of anticoagulants; R05.9 Cough, unspecified; R60.0 Localized edema
CPT/HCPCS: 36000; 36415; 71045; 80053; 83605; 83735; 83880; 84484; 85025; 85379; 85610; 85730; 87040; 93005; 96374; 99284; J1940